=== PATIENT | male | born 1950 | race Caucasian/White ===

== ENCOUNTER 2021-03-23 10:57 | Emergency (ER) | payer OTHER ==
[~2021-03-23] VITALS: Ht 185.4 cm; Wt 88.5 kg
[2021-03-23] MEDS ORDERED: ALLOPURINOL 10100 M2 PO (11:14)
[2021-03-23] MEDS ORDERED: ALENDRONATE SODI5 MG PO (11:15)
[2021-03-23] MEDS ORDERED: ASA81BEC PO (11:15)
[2021-03-23] MEDS ORDERED: FISH OIL 1,0001 EAC9 PO (11:16)
[2021-03-23] MEDS ORDERED: CALCITRIOL0.25 MCG PO (11:16)
[2021-03-23] MEDS ORDERED: CALTRATE PLUS1 EACH PO (11:16)
[2021-03-23 11:17] LABS: HEMATOCRIT 31.6 % (42.0-52.0); HEMOGLOBIN 10.9 gm/dL (14.0-18.0); MCH 30.6 pg (26.0-34.0); MCHC 34.6 g/dL (28.0-37.0); MCV 88.5 fL (80.0-100.0); PLATELET COUNT 190 thou/uL (150-400); RBC 3.58 mil/uL (4.50-6.00); RDW 14.8 % (10.5-14.5); WBC 15.5 thou/uL (4.0-11.0)
[2021-03-23] MEDS ORDERED: NIFEDIPINE ER30 MG PO (11:17)
[2021-03-23] MEDS ORDERED: LOPRESSOR50 PO (11:18)
[2021-03-23] MEDS ORDERED: PRILOSEC OTC20 MG PO (11:18)
[2021-03-23] MEDS ORDERED: PLAVIX 75 MG TA75 MG PO (11:18)
[2021-03-23] MEDS ORDERED: LEVOXYL175 MCG PO (11:18)
[2021-03-23 11:19] LABS: ANION GAP 9 mmol/L (7-16); BUN 24 mg/dL (7-18); CALCIUM 8.6 mg/dL (8.5-10.1); CHLORIDE 99 mmol/L (98-107); CO2 25 mmol/L (21-32); CREATININE 2.9 mg/dL (0.7-1.3); GLUCOSE 49 mg/dL (74-106); POTASSIUM 4.1 mmol/L (3.5-5.1); SODIUM 133 mmol/L (136-145)
[2021-03-23] MEDS ORDERED: ANTACID650 MG PO (11:19)
[2021-03-23] MEDS ORDERED: CARVEDILOL12.5 MG PO (11:19)
[2021-03-23] MEDS ORDERED: SIMVASTATIN40 MG PO (11:20)
[2021-03-23] MEDS ORDERED: TAMSULOSIN HCL0.4 MG PO (11:20)
[2021-03-23] MEDS ORDERED: NOVOLOG100 UNIT/1 SUBQ (11:20)
[2021-03-23 11:28] LABS: PLATELET ESTIMATE NORMAL
[2021-03-23 11:30] LABS: ALBUMIN 3.2 g/dL (3.4-5.0); MAGNESIUM 1.4 mg/dL (1.8-2.4); SGOT 29 U/L (15-37); SGPT 22 U/L (16-63); TOTAL BILIRUBIN 0.5 mg/dL (0.2-1.0); TOTAL PROTEIN 6.4 g/dL (6.4-8.2); TROPONIN-I <0.06 ng/mL (<0.06)
--- NOTE | 2021-03-23 12:23 | EKG ---
[address] [place] [address] ELECTROCARDIOGRAM REPORT Name: HSANNA VELASCO Room #: [facility].#: [id number] Admission: Attend Phys: Discharge: Date of : 54 Report #: [id number] [facility] ED Test Date: 2021-03-23 Test Time: 11:17:57 Pat Name: SHANNA VELASCO Department: Room: Gender: M [employer] Grader: SLIME : 1950 Requested By: Sarthak Mason Order Number: [id number] MD: Berlin Hernandez Measurements Intervals [place] Rate: 96 P: 82 KS: 237 QRS: -19 QRSD: 132 T: 70 QT: 358 QTc: 453 Interpretive Statements Sinus rhythm Prolonged [place] interval Consider left atrial enlargement Nonspecific intraventricular conduction delay Nonspecific repol abnormality, lateral leads ST elevation, consider inferior injury No previous ECG available for comparison Electronically Signed On 03-23-2021 12:23:25 CDT by Berlin Hernandez [email or web address] <ELECTRONICALLY SIGNED> By: Berlin Hernandez MD, [facility] 03/23/21 1223 1117 [id number] Berlin Hernandez MD, FACC /EPI
[2021-03-23 12:25] LABS: URINE BILIRUBIN NEGATIVE (Negative); URINE BLOOD 1+ (Negative); URINE CLARITY CLEAR; URINE COLOR YELLOW; URINE GLUCOSE-RANDOM* TRACE (Negative); URINE KETONES NEGATIVE (Negative); URINE LEUKOCYTES-REFLEX NEGATIVE (Negative); URINE NITRITE-REFLEX NEGATIVE (Negative); URINE PROTEIN (DIPSTICK) 3+ (Negative); URINE UROBILINOGEN 0.2 E.U./dl (0.2-1.0)
[2021-03-23 12:43] LABS: CASTS None Seen /LPF (None Seen); CRYSTALS None Seen /LPF (None Seen); SQUAMOUS 0-3 Few /LPF (0-3)
[2021-03-23 12:44] LABS: URINE RBC 1-2 Rare /HPF (NONE SEEN); URINE WBC-REFLEX 0-5 Rare /HPF (0-5)
[2021-03-23 12:48] LABS: BACTERIA-REFLEX None Seen /HPF (None Seen); MUCUS 0-3 Light strn/LPF (None Seen)
[2021-03-23] MEDS ORDERED: DOXYCYCLINE 10100 MG PO (15:11)
[2021-03-23] MEDS ORDERED: LEVOFLOXACIN750 MG PO (15:11)
[2021-03-23 16:10] VITALS: BP 146/68
== END 2021-03-23 16:10 | disposition home or self-care (01) ==
LOC: ER 10:57
PROVIDERS: Emergency Medicine
DX: L03.116 Cellulitis of left lower limb (principal); E10.649 Type 1 diabetes mellitus with hypoglycemia without coma; K21.9 Gastro-esophageal reflux disease without esophagitis; M10.9 Gout, unspecified; E78.5 Hyperlipidemia, unspecified; N40.0 Benign prostatic hyperplasia without lower urinary tract symptoms; Z79.82 Long term (current) use of aspirin; Z20.822 Contact with and (suspected) exposure to COVID-19; Z79.4 Long term (current) use of insulin; Z88.6 Allergy status to analgesic agent